=== PATIENT | female | born 1990 | race Caucasian/White ===

== ENCOUNTER 2016-10-04 09:58 | Emergency (ER) | payer OTHER ==
--- NOTE | 2016-10-04 10:13 | ER Document Report ---
HPI - HPI Patient complains to provider of: shoulder pain Onset: Other - 2 days ago Onset/Duration: Persistent Quality of pain: Achy Severity: Severe Pain Level: 4 - declines pain medication Context: Patient presents to the emergency department with complaints of left shoulder pain for the past couple days. She reports she slipped on the floor and caught herself with her hand on the counter, jarring her shoulder. She reports history of possible dislocation in the past. She reports pain when she moves the arm at all. She denies other symptoms such as fever vomiting diarrhea. Patient has pain 4/5 but declines any kind of pain medication here. She reports she took Aleve at 400 this morning. Associated Symptoms: None Exacerbated by: Movement Relieved by: Denies Similar symptoms previously: Yes - shoulder injury last year Recently seen / treated by doctor: No - DERM Skin Color: Normal Past Medical History - General Information source: Patient Last Menstrual Period: 09/28/16 - Social History Smoking Status: Current Every Day Smoker Cigarette use (# per day): Yes Frequency of alcohol use: Occasional Drug Abuse: None Occupation: none Lives with: Family Family History: None Patient has suicidal ideation: No Patient has homicidal ideation: No - Medical History Medical History: Negative Renal/ Medical History: Denies: Hx Peritoneal Dialysis Past Surgical History: Reports: Hx Orthopedic Surgery - knee Vertical Provider Document - CONSTITUTIONAL Agree With Documented VS: Yes Exam Limitations: No Limitations General Appearance: WD/WN, Mild Distress - winces when shoulder moved - INFECTION CONTROL TRAVEL OUTSIDE OF THE [place] IN LAST 30 DAYS: No - HEENT HEENT: Atraumatic, Normocephalic - NECK Neck: Normal Inspection, Supple. negative: Lymphadenopathy-Left, Lymphadenopathy-Right - RESPIRATORY Respiratory: Breath Sounds Normal, No Respiratory Distress O2 Sat by Pulse Oximetry: 98 - CARDIOVASCULAR Cardiovascular: Regular Rate, Regular Rhythm - MUSCULOSKELETAL/EXTREMETIES Musculoskeletal/Extremeties: Tender - Left shoulder tenderness with palpation no obvious deformity, good radial pulse, brisk cap refill, complaints of pain with passive and active movement , +arc and drop test - NEURO Level of Consciousness: Awake, Alert, Appropriate - DERM Integumentary: Warm, Dry Adult Front & Back Diagram: 1 - c/o pain to entire shoulder Course - Re-evaluation Re-evalutation: 10/04/16 11:03 Patient instructed on negative x-ray but possible rotator cuff injury and need to follow up with orthopedics. Patient reports Motrin is not helping with the pain she reports she's taken hydrocodone in the past. - Vital Signs Vital signs: Temp Pulse Resp BP Pulse Ox 99.2 F 110 H 16 142/89 H 98 10/04/16 10:03 10/04/16 10:03 10/04/16 10:03 10/04/16 10:03 10/04/16 10:03 - Diagnostic Test Radiology reviewed: Image reviewed, Reports reviewed - EXAM DESCRIPTION: SHOULDER LEFT 2 OR MORE VIEWS COMPLETED DATE/TIME: 10/04/2016 10:35 am REASON FOR STUDY: pain, caught self on counter COMPARISON: None. NUMBER OF VIEWS: Three views. TECHNIQUE: Internal rotation, external rotation, and Y view images acquired of the left shoulder. LIMITATIONS: None. FINDINGS: MINERALIZATION: Normal. BONES: No acute fracture or dislocation. No worrisome bone lesions. JOINTS: No glenohumeral malalignment. No widening at the AC joint. VISUALIZED LUNGS AND RIBS: No pneumothorax. No rib fracture. SOFT TISSUES: No radiopaque foreign body. OTHER: No other significant finding. TECHNICAL DOCUMENTATION: JOB ID: [id number] [employer]- All Rights Reserved RAD/SHOULDER LEFT 2 OR MORE VIEWS IMPRESSION: NEGATIVE STUDY OF THE LEFT SHOULDER. NO RADIOGRAPHIC EVIDENCE OF ACUTE INJURY. Procedures - Immobilization Left Shoulder Pre-Proc Neuro Vasc Exam: Normal Immobilizer type: Sling Performed by: RN Post-Proc Neuro Vasc Exam: Unchanged from pre-exam Discharge - Discharge Clinical Impression: Left shoulder pain, Elevated blood pressure reading Condition: Stable Disposition: HOME, SELF-CARE Instructions: Oral Narcotic Medication ([facility]), Sling as Treatment ([facility]) Additional Instructions: *You have been evaluated for left shoulder pain *Maintain the sling for comfort for three days *Rest/Ice/Elevate *Follow up with orthopedics within 1 week-call for an appointment *Take medication as prescribed *Return to ED for worsening condition, changes, needs Monitor your blood pressure. Your blood pressure was elevated today. This may be because you were anxious, in pain or because you need medication. It is important to follow up with your primary care provider for full evaluation. Prescriptions: Hydrocodone/Acetaminophen [[place] 5-325 Tablet] 1 each PO QID #15 tablet Forms: Elevated Blood Pressure
[2016-10-04 10:29] VITALS: BP 157/75
== END 2016-10-04 11:13 | disposition home or self-care (01) ==
LOC: ER 09:58
DX: M25.512 Pain in left shoulder (principal); R03.0 Elevated blood-pressure reading, without diagnosis of hypertension; F17.210 Nicotine dependence, cigarettes, uncomplicated; W18.30XA Fall on same level, unspecified, initial encounter
CPT/HCPCS: 99283